=== PATIENT | male | born 1990 | race African-American/Black ===

== ENCOUNTER 2017-09-13 21:05 | Emergency (ER) | payer OTHER ==
[~2017-09-13] VITALS: Ht 182.9 cm; Wt 97.5 kg
[2017-09-13] MEDS ORDERED: VENTOLIN HFA 1818 GM INH (21:17)
[2017-09-13] MEDS ORDERED: ALBUTEROL2.5 MG/0.5 INH (21:17)
[2017-09-13] MEDS ORDERED: PROAIR HFA8.5 GM INH (23:50)
[2017-09-13] MEDS ORDERED: TESSALON PERLE100 MG PO (23:50)
[2017-09-13] MEDS ORDERED: ALBUTEROL2.5 MG/31 INH (23:50)
[2017-09-13] MEDS ORDERED: PREDNISONE 20 M20 MG PO (23:50)
[2017-09-13] MEDS ORDERED: PROMETHAZINE V473 ML PO (23:50)
[2017-09-14 00:09] VITALS: BP 147/81
== END 2017-09-14 00:13 | disposition home or self-care (01) ==
LOC: M.ERS 21:05
DX: J45.901 Unspecified asthma with (acute) exacerbation (principal); F17.200 Nicotine dependence, unspecified, uncomplicated

== ENCOUNTER 2017-10-02 09:22 | Emergency (ER) | payer OTHER ==
[~2017-10-02] VITALS: Ht 182.9 cm; Wt 97.5 kg
[~2017-10-02 09:22] MED LIST: ALBUTEROL2.5 MG/0.5 INH; ALBUTEROL2.5 MG/31 INH; PREDNISONE 20 M20 MG PO; PROAIR HFA8.5 GM INH; PROMETHAZINE V473 ML PO; TESSALON PERLE100 MG PO; VENTOLIN HFA 1818 GM INH
[2017-10-02 09:57] LABS: ABSOLUTE BASOPHILS 0.1 thou/uL (0.0-0.2); ABSOLUTE EOSINOPHILS 0.6 thou/uL (0.0-0.7); ABSOLUTE LYMPHOCYTES 1.8 thou/uL (0.8-5.3); ABSOLUTE NEUTROPHILS 7.8 thou/uL (1.6-8.1); BASOPHILS 0.4 %; EOSINOPHILS 5.5 %; HEMATOCRIT 42.3 % (42.0-52.0); HEMOGLOBIN 13.8 gm/dL (14.0-18.0); LYMPHOCYTES 15.8 %; MCH 26.9 pg (26.0-34.0); MCHC 32.6 g/dL (28.0-37.0); MCV 82.4 fL (80.0-100.0); MONOCYTES 8.9 %; MPV 7.7 fl. (7.2-11.1); NUCLEATED RBCS 0 /100WBC; PLATELET COUNT* 265 thou/uL (150-400); POLYS 69.4 %; RBC 5.13 mil/uL (4.50-6.00); RDW-CV 14.9 % (10.5-14.5); WBC 11.3 thou/uL (4.0-11.0)
[2017-10-02 10:44] LABS: ALBUMIN 3.2 g/dL (3.4-5.0); ALKALINE PHOSPHATASE 80 U/L (46-116); ANION GAP 8 mmol/L (7-16); BUN 11 mg/dL (7-18); CALCIUM 8.6 mg/dL (8.5-10.1); CHLORIDE 102 mmol/L (98-107); CO2 27 mmol/L (21-32); CREATININE 0.9 mg/dL (0.6-1.3); GLUCOSE 91 mg/dL (70-99); SGOT 20 U/L (15-37); SGPT 29 U/L (30-65); SODIUM 137 mmol/L (136-145); TOTAL BILIRUBIN 0.3 mg/dL (<0.1-1.0); TOTAL PROTEIN 6.6 g/dL (6.4-8.2); TROPONIN-I LEVEL <0.06 ng/mL (<0.06)
[2017-10-02] MEDS ORDERED: NORCO 5-325 TA1 EACH PO (11:33)
[2017-10-02] MEDS ORDERED: ZPAK PO (11:33)
[2017-10-02] MEDS ORDERED: VENTOLIN HFA 1818 GM INH (11:35)
[2017-10-02 11:50] VITALS: BP 137/71
--- NOTE | 2017-10-02 15:27 | EKG ---
[place] [address] ELECTROCARDIOGRAM REPORT Name: MIKA MCKEON [id number] Admission: 10/02/17 Attend Phys: Discharge: 10/02/17 Date of : 88 Report #: [id number] THIS REPORT FOR: //name// [facility] ED Test Date: 2017-10-02 Test Time: 09:47:08 Pat Name: MIKA MCKEON Department: Room: Gender: M [employer] T[employer]: Woodrow BORJA : 1990 Requested By: Kenn Hewitt Order Number: [id number] MD: Randell Sanabria Measurements Intervals [place] Rate: 95 P: 36 TX: 163 QRS: 21 QRSD: 87 T: 29 QT: 328 QTc: 413 Interpretive Statements Sinus rhythm ST elev, probable normal early repol pattern No previous ECG available for comparison Electronically Signed On 10-02-2017 15:27:10 CDT by Randell Sanabria [email or web address] <ELECTRONICALLY SIGNED> By: Randell Sanabria MD, [facility] 10/02/17 1527 0947 6 Randell Sanabria MD, FACC /EPI
== END 2017-10-02 11:52 | disposition home or self-care (01) ==
LOC: M.ERS 09:22
PROVIDERS: Emergency Medicine Emergency Medical Services
DX: J18.9 Pneumonia, unspecified organism (principal); J45.909 Unspecified asthma, uncomplicated; F17.210 Nicotine dependence, cigarettes, uncomplicated

== ENCOUNTER 2017-10-16 18:13 | Emergency (ER) | payer OTHER ==
[~2017-10-16] VITALS: Ht 182.9 cm; Wt 97.5 kg
[~2017-10-16 18:13] MED LIST changes: +NORCO 5-325 TA1 EACH PO; +ZPAK PO
[2017-10-16] MEDS ORDERED: ZYRTEC10 M5 PO (18:34)
[2017-10-16] MEDS ORDERED: ACETAMINOPHEN-1 EAC1 PO (19:07)
[2017-10-16] MEDS ORDERED: PREDNISONE 20 M20 M1 PO (19:07)
[2017-10-16 19:19] VITALS: BP 99/71
[2017-10-17] MEDS ORDERED: PROAIR HFA8.5 GM INH (00:44)
[2017-10-17] MEDS ORDERED: HYDROCODONE-AP1 EAC6 PO (00:46)
== END 2017-10-16 19:21 | disposition home or self-care (01) ==
LOC: M.ERS 18:13
DX: J45.901 Unspecified asthma with (acute) exacerbation (principal); F17.210 Nicotine dependence, cigarettes, uncomplicated

== ENCOUNTER 2017-10-16 23:28 | Emergency (ER) | payer OTHER ==
[~2017-10-16] VITALS: Ht 182.9 cm; Wt 97.5 kg
[~2017-10-16 23:28] MED LIST changes: +ACETAMINOPHEN-1 EAC1 PO; +PREDNISONE 20 M20 M1 PO; +ZYRTEC10 M5 PO
[2017-10-17 00:04] LABS: ABSOLUTE BASOPHILS 0.1 thou/uL (0.0-0.2); ABSOLUTE EOSINOPHILS 0.7 thou/uL (0.0-0.7); ABSOLUTE LYMPHOCYTES 4.4 thou/uL (0.8-5.3); ABSOLUTE MONOCYTES 1.3 thou/uL (0.0-1.2); ABSOLUTE NEUTROPHILS 6.1 thou/uL (1.6-8.1); BASOPHILS 0.9 %; EOSINOPHILS 5.8 %; HEMATOCRIT 41.9 % (42.0-52.0); HEMOGLOBIN 13.6 gm/dL (14.0-18.0); LYMPHOCYTES 34.5 %; MCH 26.9 pg (26.0-34.0); MCHC 32.5 g/dL (28.0-37.0); MCV 82.8 fL (80.0-100.0); MONOCYTES 10.1 %; NUCLEATED RBCS 0 /100WBC; PLATELET COUNT* 283 thou/uL (150-400); POLYS 48.7 %; RBC 5.07 mil/uL (4.50-6.00); RDW-CV 15.6 % (10.5-14.5); WBC 12.6 thou/uL (4.0-11.0)
[2017-10-17 00:09] LABS: CALCIUM 8.6 mg/dL (8.5-10.1); CREATININE 1.1 mg/dL (0.6-1.3); POTASSIUM 3.8 mmol/L (3.5-5.1)
[2017-10-17 00:21] LABS: ALBUMIN 3.3 g/dL (3.4-5.0); TOTAL BILIRUBIN 0.2 mg/dL (<0.1-1.0); TOTAL PROTEIN 6.7 g/dL (6.4-8.2)
[2017-10-17 00:43] LABS: INFLUENZA A ANTIGEN None Detected (None Detect); INFLUENZA B ANTIGEN None Detected (None Detect)
[2017-10-17] MEDS ORDERED: PROAIR HFA8.5 GM INH (00:44)
[2017-10-17] MEDS ORDERED: HYDROCODONE-AP1 EAC6 PO (00:46)
[2017-10-17 00:53] VITALS: BP 127/80
== END 2017-10-17 00:54 | disposition home or self-care (01) ==
LOC: M.ERS 23:28
PROVIDERS: Emergency Medicine
DX: J45.901 Unspecified asthma with (acute) exacerbation (principal); F17.210 Nicotine dependence, cigarettes, uncomplicated